=== PATIENT | female | born 1985 | race Caucasian/White ===

== ENCOUNTER 2021-01-05 13:00 | Emergency (ER) | payer SELFPAY ==
[2021-01-05 13:19] VITALS: BP 149/80; PULSE 113; TEMP 98.5; BMI 51.5
[2021-01-05] MEDS ORDERED: morphine CARPU-JECT 4 MG/1 ML DISP.SYRIN IVPUSH ONE (14:18)
[2021-01-05] MEDS ORDERED: HYDROmorphone HCl 2 MG/ML VIAL IM STA (14:25)
[2021-01-05] MEDS ORDERED: ONDANSETRON *ODT* 4 MG TABLET SL ONE (14:29)
[2021-01-05] MEDS ORDERED: HYDROmorphone HCl 2 MG/ML VIAL ONE (14:32)
[2021-01-05] MEDS ORDERED: DEXTROSE 10%-WATER - 1,000 ML IV SCH (15:15)
[2021-01-05 16:22] LABS: PH,URINE 7.5 (5.0-8.0); URINE BILIRUBIN NEGATIVE (NEGATIVE); URINE COLOR YELLOW; URINE GLUCOSE (UA) NEGATIVE (NEGATIVE); URINE KETONE NEGATIVE (NEGATIVE); URINE LEUK ESTERASE NEGATIVE (NEGATIVE); URINE NITRITE NEGATIVE (NEGATIVE); URINE PROTEIN NEGATIVE (NEGATIVE); URINE UROBILINOGEN 0.2 mg/dL (0.2-1.0)
[2021-01-05 16:31] LABS: URINE APPEARANCE SL CLOUDY
== END 2021-01-05 17:20 | disposition left against medical advice (07) ==
LOC: JER 13:00
PROC: 3E033NZ Introduction of Analgesics, Hypnotics, Sedatives into Peripheral Vein, Percutaneous Approach (ICD-10-PCS; principal; 2021-01-05)
PROC: 3E023NZ Introduction of Analgesics, Hypnotics, Sedatives into Muscle, Percutaneous Approach (ICD-10-PCS; 2021-01-05)
DX: E80.20 Unspecified porphyria (principal)
CPT/HCPCS: 36415; 70450-TC; 81003; 84110; 87086; 87186; 87491; 87591; 87661; 99284-25; Q0162